=== PATIENT | male | born 1955 | race Caucasian/White ===

== ENCOUNTER 2022-10-28 19:22 | Emergency (ER) | payer BC, MEDICARE ==
--- NOTE | 2022-10-28 19:29 | ED General ---
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 Patient developed fever at home and became so lethargic that he was unable to stand up or walk by himself. Patient is also complaining of abdominal pain and flank pain which is generalized, however it is more in the left upper quadrant and the left flank. Patient has not had much to drink all day and has not had anything to eat. Patient has a chronic cough from the lung cancer. Patient had his last immunotherapy session 6 weeks ago and is supposed to be starting chemotherapy at the end of October. In the ER patient appears lethargic but is able to answer most questions slowly, and is able to follow commands. Allergies and Home Medications Allergies Coded Allergies: No Known Drug Allergies (Unverified , 10/28/22) Patient Home Medication List Home Medication List Reviewed: Yes Review of Systems Review of Systems Constitutional: chills, fever, malaise EENTM: no symptoms reported Respiratory: see HPI, cough Cardiovascular: no symptoms reported Gastrointestinal: abdominal pain, loss of appetite Genitourinary: no symptoms reported Musculoskeletal: no symptoms reported Skin: no symptoms reported Psychiatric/Neurological: No Symptoms Reported Hematologic/Lymphatic: No Symptoms Reported Immunological/Allergic: no symptoms reported Physical Exam Vital Signs Vital Signs - First Documented 10/28/22 19:23 Temp 38.0 Pulse 128 Resp 20 B/P (MAP) 135/66 (89) Pulse Ox 98 O2 Delivery Nasal Cannula O2 Flow Rate 2.00 Capillary Refill : Height, Weight, BMI Height: '" Weight: lbs. oz. kg; BMI Method: General Appearance: WD/WN, Chronically ill, Cachetic, Mild Distress HEENT: PERRL/EOMI, Pharynx Normal, Other (Dry mucous membranes and tenting of skin present) Neck: Full Range of Motion, Normal Inspection, Non Tender, Supple Respiratory: Chest Non Tender, Lungs Clear, Normal Breath Sounds, No Accessory Muscle Use Cardiovascular: No Edema, Normal Peripheral Pulses, Tachycardia Gastrointestinal: Normal Bowel Sounds, Soft, Tenderness (Tenderness present and appears diffuse, however there is more tenderness in the left upper quadrant and also the left flank more than the other areas.) Back: CVA Tenderness (L) (Left greater than right), CVA Tenderness (R) Extremity: Normal Range of Motion Neurologic/Psychiatric: Alert, No Motor/Sensory Deficits, on site construction superintendent II-XII Norm as Tested, Other (Patient is alert and oriented x2, he was unable to state the year) Skin: Normal Color, Other (Dry mucous membranes and tenting of skin present) Focused Exam Lactate Level 10/28/22 19:30: Lactic Acid Level 1.32 Lactic Acid Level Laboratory Tests Test 10/28/22 19:30 Lactic Acid Level 1.32 MMOL/L (0.50-2.00) Progress/Results/Core Measures Suspected Sepsis SIRS Temperature: Pulse: Respiratory Rate: Laboratory Tests 10/28/22 19:30: White Blood Count 27.9H Blood Pressure / Mean: 10/28/22 19:30: Lactic Acid Level 1.32 Laboratory Tests 10/28/22 19:30: Creatinine 1.57H, INR Comment 1.2, Platelet Count 333, Total Bilirubin 0.9 Results/Orders Lab Results Laboratory Tests Test 10/28/22 19:30 Range/Units White Blood Count 27.9 H 4.3-11.0 10^3/uL Red Blood Count 3.37 L 4.30-5.52 10^6/uL Hemoglobin 10.4 L 13.3-17.7 g/dL Hematocrit 33 L 40-54 % Mean Corpuscular Volume 98 80-99 fL Mean Corpuscular Hemoglobin 31 25-34 pg Mean Corpuscular Hemoglobin Concent 31 L 32-36 g/dL Red Cell Distribution Width 14.9 H 10.0-14.5 % Platelet Count 333 130-400 10^3/uL Mean Platelet Volume 9.2 9.0-12.2 fL Immature Granulocyte % (Auto) 1 % Neutrophils (%) (Auto) 88 H 42-75 % Lymphocytes (%) (Auto) 2 L 12-44 % Monocytes (%) (Auto) 6 0-12 % Eosinophils (%) (Auto) 4 0-10 % Basophils (%) (Auto) 0 0-10 % Neutrophils # (Auto) 24.4 H 1.8-7.8 10^3/uL Lymphocytes # (Auto) 0.5 L 1.0-4.0 10^3/uL Monocytes # (Auto) 1.6 H 0.0-1.0 10^3/uL Eosinophils # (Auto) 1.1 H 0.0-0.3 10^3/uL Basophils # (Auto) 0.1 0.0-0.1 10^3/uL Immature Granulocyte # (Auto) 0.3 H 0.0-0.1 10^3/uL Neutrophils % (Manual) 84 % Lymphocytes % (Manual) 3 % Monocytes % (Manual) 6 % Eosinophils % (Manual) 7 % Toxic Granulation 2+ Prothrombin Time 15.4 H 12.2-14.7 SEC INR Comment 1.2 0.8-1.4 Activated Partial Thromboplast Time 28 24-35 SEC D-Dimer 1.66 H 0.00-0.49 UG/ML Sodium Level 134 L 135-145 MMOL/L Potassium Level 4.7 3.6-5.0 MMOL/L Chloride Level 100 98-107 MMOL/L Carbon Dioxide Level 20 L 21-32 MMOL/L Anion Gap 14 5-14 MMOL/L Blood Urea Nitrogen 28 H 7-18 MG/DL Creatinine 1.57 H 0.60-1.30 MG/DL Estimat Glomerular Filtration Rate 48 BUN/Creatinine Ratio 18 Glucose Level 102 70-105 MG/DL Lactic Acid Level 1.32 0.50-2.00 MMOL/L Calcium Level 9.5 8.5-10.1 MG/DL Corrected Calcium 10.7 H 8.5-10.1 MG/DL Magnesium Level 2.1 1.6-2.4 MG/DL Total Bilirubin 0.9 0.1-1.0 MG/DL Aspartate Amino Transf (AST/SGOT) 30 5-34 U/L Alanine Aminotransferase (ALT/SGPT) 23 0-55 U/L Alkaline Phosphatase 129 40-136 U/L Troponin I < 0.30 <0.30 NG/ML Pro-B-Type Natriuretic Peptide 812.0 H <125.0 PG/ML Total Protein 6.9 6.4-8.2 GM/DL Albumin 2.5 L 3.2-4.5 GM/DL Lipase 8 8-78 U/L Influenza Type A (RT-PCR) Not Detected Not Detecte Influenza Type B (RT-PCR) Not Detected Not Detecte SARS-CoV-2 RNA (RT-PCR) Not Detected Not Detecte Smear Scan PLTS INCREASED My Orders Orders - NATALIIA SALINAS MD Cbc With Automated Diff (10/28/22:29) Comprehensive Metabolic Panel (10/28/22:) Blood Culture (10/28/22:29) Sputum Culture (10/28/22:) Urinalysis (10/28/22:) Urine Culture (10/28/22:) Protime With Inr (10/28/22:) Partial Thromboplastin Time (10/28/22:) Chest 1 View Ap/Pa Only (10/28/22:29) Ed Iv/Invasive Line Start (10/28/22:) Ed Iv/Invasive Line Start (10/28/22:) Vital Signs Adult Sepsis Patie Q15M (10/28/22:29) O2 (10/28/22:29) Remove Rings In Anticipation O (10/28/22:) Lactic Acid Analyzer (10/28/22:) Acetaminophen Tablet (Tylenol Tablet) (10/28/22 19:45) Ns Iv 1000 Ml (Sodium Chloride 0.9%) (10/28/22 19:45) Cefepime Injection (Maxipime Injection) (10/28/22 19:45) Covid 19 Inhouse Test (10/28/22 19:32) Influenza A And B By Pcr (10/28/22 19:32) Fibrin Degradation Products (10/28/22 19:33) Magnesium (10/28/22 19:33) Protime With Inr (10/28/22 19:33) Probnp Fs (10/28/22 19:33) Manual Differential (10/28/22 19:30) Ct Head Wo (10/28/22 20:14) Lipase (10/28/22 20:17) Troponin I Fs (10/28/22 20:17) Continuous Ekg Monitoring (10/28/22 20:18) Ekg Tracing (10/28/22 20:18) Ct Luz Chest/Noang Abd-Pelv W (10/28/22 20:14) Iohexol Injection (Omnipaque 350 Mg/Ml 1 (10/28/22 20:30) Received Contrast (Hold Metformin- Contr (10/28/22 20:30) Ns (Ivpb) (Sodium Chloride 0.9% Ivpb Bag (10/28/22 20:30) Ed Iv/Invasive Line Start (10/28/22 22:55) Ns Iv 1000 Ml (Sodium Chloride 0.9%) (10/28/22 22:55) Medications Given in ED Current Medications Medications Dose Ordered Sig/Juan Route Start Time Stop Time Status Last Admin Dose Admin Acetaminophen 1,000 mg ONCE PRN PO 10/28/22 19:45 10/28/22 19:45 DC 10/28/22 19:43 1,000 MG Cefepime HCl 1000 mg/Sodium Chloride 50 ml @ 100 mls/hr ONCE ONCE IV 10/28/22 19:45 10/28/22 20:14 DC 10/28/22 19:44 100 MLS/HR Iohexol 100 ml ONCE ONCE IV 10/28/22 20:30 10/28/22 20:31 DC 10/28/22 21:07 100 ML Sodium Chloride 100 ml ONCE ONCE IV 10/28/22 20:30 10/28/22 20:31 DC 10/28/22 21:07 100 ML Vital Signs/I&O 10/28/22 19:23 Temp 38.0 Pulse 128 Resp 20 B/P (MAP) 135/66 (89) Pulse Ox 98 O2 Delivery Nasal Cannula O2 Flow Rate 2.00 Capillary Refill : Progress Note : Progress Note 1. GENERALIZED WEAKNESS: LEFT LOWER LOBE PNEUMONIA - CXR: Left lower lobe consolidations and small left effusion.see report for more info - CT HEAD: no acute findings - CT ABD/ PELVIS: Multiple bilateral lung nodules described above. There is also a consolidated density in the left upper lobe. There are some bronchiectatic changes primarily in the left lung and right lower lobe. Small left effusion. Small to Moderate-sized pericardial effusion. A diffuse skeletal metastasis with a pathologic fracture involving T11. This may benefit from vertebral augmentation including ablation. There is an amorphous-appearing left kidney with what appears to be an approximately 7 cm x 6 cm left kidney mass. Additional nonemergent findings as described above. - CBC: WBC is 27.9 with a left shift - Lactic acid is normal - Troponin: undetectable - EKG: nonischemic, initially showed sinus tachycardia - UA: unable to give a sample, urine will need to be checked once admitted -Sepsis protocol activated upon initial presentation to ER due to tachycardia, hypotension, fever with clinical signs of dehydration. Blood culture sent immediately and IV fluids and IV cefepime started. - CEFEPIME IV FIRST DOSE IN ER - Tylenol 1000mg once STAT for fever - Discussed with , and they are at capacity and unable to accept the pt, Hospitlaist at is Dr Kaplan who recommended fluids and iv antibiotics. Pt's family then wished to go to [facility] for admission since pt's PCP is there. Discussed with Dr Brock, who accepted patient [facility]. -Patient's heart rate has improved and he is no longer tachycardic, patient's oxygen saturation is 97 to 98% on 2 L of oxygen, and blood pressure has improved and stable on IV fluids 2. DEHYDRATION: - s. creatinine is 1.57 with BUN of 28 -Clinical exam shows dry mucous membranes and tenting of skin - IVF: NS 3. ELEVATED D-DIMER: - D-dimer: Elevated at 1.66 - CTA CHEST: negative for PE. See report for further details ECG Initial ECG Impression Date: Oct 28, 2022 Initial ECG Impression Time: 21:59 Initial ECG Rate: 72 Initial ECG Rhythm: Normal Sinus Initial ECG Intervals: Normal Initial ECG Impression: Normal Initial ECG Comparisson: No Previous ECG Available Diagnostic Imaging Diagonstic Imaging: Xray, CT Plain Films/CT/US/NM/MRI: chest, abdomen, head Comments [facility], [place] NAME: BYRON HSIEH [facility] REC#: [id number] PT STATUS: REG ER : 1955 PHYSICIAN: NATALIIA SALINAS MD ADMIT DATE: 10/28/22/ER FS Signed Date of Exam:10/28/22 CT LUZ CHEST/NOANG ABD-PELV W INDICATION: generalized abdominal pain CTA chest, abdomen and pelvis Thin axial sections through the chest, abdomen and pelvis are obtained following intravenous contrast bolus. Multiplanar MIP images were reconstructed and reviewed. All CT scans use one or more of the following dose optimizing techniques: automated exposure control, MA and/or KvP adjustment based on patient size and exam type or iterative reconstruction. INDICATION: Weakness, history of lung cancer with metastases. COMPARISONS: Single view chest 10/29/2019, no other comparisons available. FINDINGS: There is no axillary adenopathy. There is an inflammatory and/or neoplastic process with the thickening within the mediastinum including the shukri. This extends into both lu. Cardiac contour is normal. Coronary calcifications are seen. Nonaneurysmal aortic calcifications are also present. There is normal arch origin of great vessels. Pulmonary outflow tract as well as right and left pulmonary arteries, their segmental and subsegmental branches are patent with no evidence of intraluminal thrombus. Lungs show patchy alveolar infiltrates. There is bilateral lung nodules several of which show small areas of cavitation. The dominant right upper lung nodule measures 12 mm. Additional centimeters subcentimeter nodules are seen in the right lower lobe. There is central bronchiectatic changes extending into the left lower lobe. There is some consolidated density in the left upper lobe. There is a small left effusion. Liver shows a indeterminate 14 mm low-density lesion in segment 7 with a second segment 6 lesion of similar size measuring 13 mm. A 3rd hypodense lesion in segment 6 measures 10 mm. Gallbladder shows no evidence of radiopaque stones, sludge, wall thickening or pericholecystic fluid. There is a aqnwz-gj-bsssngnc pericardial effusion. The stomach, GE junction, and duodenal sweep are normal. Pancreas shows sharp margins. Adrenals are normal. Kidneys show normal perfusion to the right kidney. Left kidney appears slightly amorphous with heterogenous attenuation with some stranding. There is a Bosniak classification 2 cyst measuring 6.5 cm in the upper pole. The rest of the kidney shows some indistinct margins. This may represent pyelonephrosis however a neoplastic process is not entirely excluded. There is left perinephric stranding. There is left periureteral stranding. Filled bladder is grossly unremarkable. The right ureter is normal in caliber. There is no evidence of right obstructive uropathy. Prostate is slightly enlarged show some heterogenous attenuation. Measures 4.8 cm in diameter. Nonopacified loops of small bowel are normal. Large bowel contains a moderate amount of fecal load. There is normal caliber of aorta, iliac and femoral arteries with normal origin of the visceral arteries. A few nonaneurysmal calcifications are seen in the iliac arteries. Bone windows show a pathologic fracture involving T11 with 30% compression. There are scattered lytic lesions throughout the axial skeleton including C7 and T1 as well as multiple lesions throughout the lumbar spine. Sclerotic lesions are seen in the pelvis as well as the proximal left femur. IMPRESSION: 1. Multiple bilateral lung nodules described above. There is also a consolidated density in the left upper lobe. 2. There are some bronchiectatic changes primarily in the left lung and right lower lobe. 3. Small left effusion. 4. Moderate-sized pericardial effusion. 5. A diffuse skeletal metastasis with a pathologic fracture involving T11. This may benefit from vertebral augmentation including ablation. 6. There is an amorphous-appearing left kidney with what appears to be an approximately 7 cm x 6 cm left kidney mass. Additional nonemergent findings as described above. Dictated by: Dictated on workstation # [id number] Dict: 10/28/222108 Trans: 10/28/222137 B [id number] Interpreted by: OMAIRA PALMA MD Electronically signed by: OMAIRA PALMA MD 10/28/222137 [facility] [place] NAME: BYRON HSIEH [facility] REC#: [id number] PT STATUS: REG ER : 1955 PHYSICIAN: NATALIIA SALINAS MD ADMIT DATE: 10/28/22/ER FS Signed Date of Exam:10/28/22 CT HEAD WO PROCEDURE: CT head without contrast. TECHNIQUE: Multiple contiguous axial images were obtained through the brain without the use of intravenous contrast. Auto Exposure Controls were utilized during the CT exam to meet ALARA standards for radiation dose reduction. INDICATION: Altered mental status The ventricles are normal in size, shape and position. There are no masses or hemorrhages. There are no extra-axial fluid collections. IMPRESSION: Negative CT head Dictated by: Dictated on workstation # [id number] Dict: 10/28/222107 Trans: 10/28/222109 TCB [id number] Interpreted by: MARRY VALDEZ MD Electronically signed by: MARRY VALDEZ MD 10/28/222109 [facility] [place] [place] NAME: BYRON HSIEH [facility] REC#: [id number] PT STATUS: REG ER : 1955 PHYSICIAN: NATALIIA SALINAS MD ADMIT DATE: 10/28/22/ER FS Draft Date of Exam:10/28/22 CHEST 1 VIEW AP/PA ONLY INDICATION: 67-year-old male with lung cancer, feels weak. COMPARISONS: None FINDINGS: Single view of the chest shows the cardiac contour to be enlarged. There is a small left effusion with left lower lobe consolidation. There is some ill-defined parenchymal densities in the left upper chest. Some central bronchiectatic changes are present. Right IJ Mediport is seen with the tip projected over the mid SVC. Soft tissues and bony thorax are unremarkable. IMPRESSION: 1. Left lower lobe consolidations and small left effusion. 2. Scarlike densities in the left upper chest that may be associated with the patient's lung cancer. There is also fullness in the right hilum. 3.Right IJ Mediport with tip in the SVC. Dictated on workstation # [id number] Dict: 10/28/221950 Trans: 10/28/221999 CVB [id number] Interpreted by: OMAIRA PALMA MD Electronically signed by: Departure Impression Primary Impression: Sepsis Additional Impressions: Left lower lobe pneumonia Qualified Codes: J18.9 - Pneumonia, unspecified organism Dehydration Elevated d-dimer Disposition: XFER SHT-TRM HOSP Condition: Improved Admissions Decision to Admit Reason: Admit from ER (General) Decision to Admit/Date: Oct 28, 2022 Time/Decision to Admit Time: 22:00 Transfer Transfer Reason: Exceeds level of care Time Spoke to Accepting Phy: 23:06 Transfer Progress Notes Discussed with hospitalist and PCP, Dr. Brock and accepted for transfer Transfer Facility: [facility] Method of Transfer: EMS Departure-Patient Inst. Referrals: NO,LOCAL PHYSICIAN (PCP/Family) Primary Care Physician NATALIIA SALINAS MD Oct 28, 2022 19:28
[2022-10-28 19:42] LABS: BASOPHILS # (AUTO) 0.1 10^3/uL (0.0-0.1); BASOPHILS % (AUTO) 0 % (0-10); EOSINOPHILS # (AUTO) 1.1 10^3/uL (0.0-0.3); EOSINOPHILS % (AUTO) 4 % (0-10); HEMATOCRIT 33 % (40-54); HEMOGLOBIN 10.4 g/dL (13.3-17.7); LYMPHOCYTES # (AUTO) 0.5 10^3/uL (1.0-4.0); LYMPHOCYTES % (AUTO) 2 % (12-44); MEAN CORPUSCULAR HEMOGLOBIN 31 pg (25-34); MEAN CORPUSCULAR HGB CONC 31 g/dL (32-36); MEAN CORPUSCULAR VOLUME 98 fL (80-99); MEAN PLATELET VOLUME 9.2 fL (9.0-12.2); MONOCYTES # (AUTO) 1.6 10^3/uL (0.0-1.0); MONOCYTES % (AUTO) 6 % (0-12); NEUTROPHILS # (AUTO) 24.4 10^3/uL (1.8-7.8); NEUTROPHILS % (AUTO) 88 % (42-75); PLATELET COUNT 333 10^3/uL (130-400); WHITE BLOOD COUNT 27.9 10^3/uL (4.3-11.0)
[2022-10-28] MEDS ORDERED: NS IV 1000 ML 1,000 ML IV SCH (19:45)
[2022-10-28] MEDS ORDERED: ACETAMINOPHEN 500 MG TAB (TYLENOL) PO PRN (19:45)
[2022-10-28] MEDS ORDERED: CEFEPIME INJECTION 1,000 MG in NS (IVPB) 50 ML IV ONE (19:45)
--- NOTE | 2022-10-28 20:01 | Diagnostic Imaging Report ---
INDICATION: 67-year-old male with lung cancer, feels weak. COMPARISONS: None FINDINGS: Single view of the chest shows the cardiac contour to be enlarged. There is a small left effusion with left lower lobe consolidation. There is some ill-defined parenchymal densities in the left upper chest. Some central bronchiectatic changes are present. Right IJ Mediport is seen with the tip projected over the mid SVC. Soft tissues and bony thorax are unremarkable. IMPRESSION: 1. Left lower lobe consolidations and small left effusion. 2. Scarlike densities in the left upper chest that may be associated with the patient's lung cancer. There is also fullness in the right hilum. 3.Right IJ Mediport with tip in the SVC. Dictated by: Dictated on workstation # [id number]
[2022-10-28 20:08] LABS: ALBUMIN 2.5 GM/DL (3.2-4.5); BILIRUBIN,TOTAL 0.9 MG/DL (0.1-1.0); CALCIUM 9.5 MG/DL (8.5-10.1); CREATININE SERUM 1.57 MG/DL (0.60-1.30); INR 1.2 (0.8-1.4); MAGNESIUM 2.1 MG/DL (1.6-2.4); POTASSIUM 4.7 MMOL/L (3.6-5.0); PROTHROMBIN TIME PATIENT 15.4 SEC (12.2-14.7); TOTAL PROTEIN 6.9 GM/DL (6.4-8.2)
[2022-10-28 20:11] LABS: FIBRIN DEGRADATION PRODUCTS 1.66 UG/ML (0.00-0.49)
[2022-10-28 20:26] LABS: EOSINOPHILS % (MANUAL) 7 %; LYMPHOCYTES % (MANUAL) 3 %; MONOCYTES % (MANUAL) 6 %; NEUTROPHILS % (MANUAL) 84 %; SMEAR SCAN COMMENT PLTS INCREASED; TOXIC GRANULATION/VACUOLAZATIO 2+
[2022-10-28] MEDS ORDERED: IOHEXOL 350 MG/ML 100 ML (OMNIPAQUE 350) VIAL IV ONE (20:30)
[2022-10-28] MEDS ORDERED: HOLD METFORMIN - RECEIVED CONTRAST 20 ML VIAL IV SCH (20:30)
[2022-10-28] MEDS ORDERED: NS 100 ML (IVPB) BAG IV ONE (20:30)
[2022-10-28 20:34] LABS: LIPASE 8 U/L (8-78)
--- NOTE | 2022-10-28 21:11 | Diagnostic Imaging Report ---
PROCEDURE: CT head without contrast. TECHNIQUE: Multiple contiguous axial images were obtained through the brain without the use of intravenous contrast. Auto Exposure Controls were utilized during the CT exam to meet ALARA standards for radiation dose reduction. INDICATION: Altered mental status The ventricles are normal in size, shape and position. There are no masses or hemorrhages. There are no extra-axial fluid collections. IMPRESSION: Negative CT head Dictated by: Dictated on workstation # [id number]
--- NOTE | 2022-10-28 21:29 | Diagnostic Imaging Report ---
INDICATION: generalized abdominal pain CTA chest, abdomen and pelvis Thin axial sections through the chest, abdomen and pelvis are obtained following intravenous contrast bolus. Multiplanar MIP images were reconstructed and reviewed. All CT scans use one or more of the following dose optimizing techniques: automated exposure control, MA and/or KvP adjustment based on patient size and exam type or iterative reconstruction. INDICATION: Weakness, history of lung cancer with metastases. COMPARISONS: Single view chest 10/29/2019, no other comparisons available. FINDINGS: There is no axillary adenopathy. There is an inflammatory and/or neoplastic process with the thickening within the mediastinum including the shukri. This extends into both lu. Cardiac contour is normal. Coronary calcifications are seen. Nonaneurysmal aortic calcifications are also present. There is normal arch origin of great vessels. Pulmonary outflow tract as well as right and left pulmonary arteries, their segmental and subsegmental branches are patent with no evidence of intraluminal thrombus. Lungs show patchy alveolar infiltrates. There is bilateral lung nodules several of which show small areas of cavitation. The dominant right upper lung nodule measures 12 mm. Additional centimeters subcentimeter nodules are seen in the right lower lobe. There is central bronchiectatic changes extending into the left lower lobe. There is some consolidated density in the left upper lobe. There is a small left effusion. Liver shows a indeterminate 14 mm low-density lesion in segment 7 with a second segment 6 lesion of similar size measuring 13 mm. A 3rd hypodense lesion in segment 6 measures 10 mm. Gallbladder shows no evidence of radiopaque stones, sludge, wall thickening or pericholecystic fluid. There is a tewio-aj-ulpqgiht pericardial effusion. The stomach, GE junction, and duodenal sweep are normal. Pancreas shows sharp margins. Adrenals are normal. Kidneys show normal perfusion to the right kidney. Left kidney appears slightly amorphous with heterogenous attenuation with some stranding. There is a Bosniak classification 2 cyst measuring 6.5 cm in the upper pole. The rest of the kidney shows some indistinct margins. This may represent pyelonephrosis however a neoplastic process is not entirely excluded. There is left perinephric stranding. There is left periureteral stranding. Filled bladder is grossly unremarkable. The right ureter is normal in caliber. There is no evidence of right obstructive uropathy. Prostate is slightly enlarged show some heterogenous attenuation. Measures 4.8 cm in diameter. Nonopacified loops of small bowel are normal. Large bowel contains a moderate amount of fecal load. There is normal caliber of aorta, iliac and femoral arteries with normal origin of the visceral arteries. A few nonaneurysmal calcifications are seen in the iliac arteries. Bone windows show a pathologic fracture involving T11 with 30% compression. There are scattered lytic lesions throughout the axial skeleton including C7 and T1 as well as multiple lesions throughout the lumbar spine. Sclerotic lesions are seen in the pelvis as well as the proximal left femur. IMPRESSION: 1. Multiple bilateral lung nodules described above. There is also a consolidated density in the left upper lobe. 2. There are some bronchiectatic changes primarily in the left lung and right lower lobe. 3. Small left effusion. 4. Moderate-sized pericardial effusion. 5. A diffuse skeletal metastasis with a pathologic fracture involving T11. This may benefit from vertebral augmentation including ablation. 6. There is an amorphous-appearing left kidney with what appears to be an approximately 7 cm x 6 cm left kidney mass. Additional nonemergent findings as described above. Dictated by: Dictated on workstation # [id number]
[2022-10-28] MEDS ORDERED: NS IV 1000 ML 1,000 ML IV STA (22:55)
[2022-10-28 23:31] VITALS: BP 116/62
== END 2022-10-28 23:40 | disposition short-term general hospital (02) ==
LOC: ER FS 19:25 → EDBD 19:25 → ER FS 23:40
DX: A41.9 Sepsis, unspecified organism (principal); J18.9 Pneumonia, unspecified organism; R79.1 Abnormal coagulation profile; E86.0 Dehydration; C34.90 Malignant neoplasm of unspecified part of unspecified bronchus or lung; C78.7 Secondary malignant neoplasm of liver and intrahepatic bile duct; C79.00 Secondary malignant neoplasm of unspecified kidney and renal pelvis; R00.0 Tachycardia, unspecified; Z20.822 Contact with and (suspected) exposure to COVID-19; Z28.310 Unvaccinated for COVID-19
CPT/HCPCS: 36415; 70450; 71045; 71275; 74177; 80053; 83605; 83690; 83735; 83880; 84484; 85007; 85027; 85379; 85610; 85730; 87040; 87636; 93005; Q9967